=== PATIENT | female | born 1990 | race Caucasian/White ===

== ENCOUNTER 2016-05-31 10:23 | Emergency (ER) | payer SELFPAY ==
[~2016-05-31] VITALS: Ht 180.3 cm; Wt 64.3 kg
[~2016-05-31 10:23] MED LIST: AUGM500T7 PO; Benzocaine TOP; METH10TA PO
[2016-05-31 10:29] VITALS: BP 111/83; PULSE 73; RESP 16; TEMP 98.5; O2SAT 98
[2016-05-31] MEDS ORDERED: METH40TA PO (10:34)
[2016-05-31] MEDS ORDERED: PENI250T59 PO (10:38)
[2016-05-31] MEDS ORDERED: IBUP-232 PO (10:38)
--- NOTE | 2016-05-31 10:39 | PD ---
HPI Chief Complaint: Oral / Dental Pain or Problem Time Seen by Provider: 10:33 Travel History International Travel<30 days: No Contact w/Intl Traveler<30days: No Traveled to known affect area: No History of Present Illness HPI The patient is a 26-year-old female who presents to the emergency department for dental pain. The patient notes a five-day history of the left upper molar. The tooth is sensitive to heat and cold. The pain radiates up to the ear down into the neck. The pain is worse with mastication and palpation. The patient states she is unable to see a dentist for 2 weeks' duration. The patient is currently on methadone, denies any other medications. She denies any known drug allergies. The patient's last menstrual cycle was 2 weeks ago, she denies . She denies any associated swelling, fever, chills, or sweats. PFSH Past Medical History Cancer: No Cardiovascular Problems: No Diabetes: No Endocrine: No Genitourinary: No Hepatitis: No Hiatal Hernia: No Immune Disorder: No Musculoskeletal: No Neurologic: No Psychiatric: No Respiratory: No Thyroid Disease: No ?: Not LMP: 2 weeks ago Past Surgical History Pacemaker: No Social History Alcohol Use: No Tobacco Use: Yes (1.2 ood) Substance Use: No (HX OF IV ABUSE) Allergies-Medications (Allergen,Severity, Reaction): Coded Allergies: No Known Allergies (Unverified , 05/31/16) Reported Meds & Prescriptions Reported Meds & Active Scripts Active Reported Methadone (Methadone HCl) 40 Mg Tab 150 Mg PO DAILY Review of Systems General / Constitutional: No: Fever HENT: Positive: Dental Difficulties Skin: No Rash Neurologic: No: Paresthesia Physical Exam Narrative GENERAL: Awake, alert, nontoxic-appearing 26-year-old female who appears her stated age and is in no acute respiratory distress. SKIN: Warm and dry. HEAD: Atraumatic. Normocephalic. EYES: Pupils equal and round. No scleral icterus. No injection or drainage. ENT: No nasal bleeding or discharge. Mucous membranes pink and moist. Inspection of the dentition reveals that tooth #14 is slightly green discolored. It is sensitive to palpation. No obvious swelling along the gingival area. NECK: Trachea midline. No JVD. MUSCULOSKELETAL: No obvious deformities. No clubbing. No cyanosis. No edema. NEUROLOGICAL: Awake and alert. No obvious cranial nerve deficits. Motor grossly within normal limits. Normal speech. PSYCHIATRIC: Appropriate mood and affect; insight and judgment normal. Data Data Last Documented VS Vital Signs Date Time Temp Pulse Resp B/P Pulse Ox O2 Delivery O2 Flow Rate FiO2 05/31/16 10:29 98.5 73 16 111/83 98 MDM Medical Decision Making Medical Screen Exam Complete: Yes Emergency Medical Condition: Yes Medical Record Reviewed: Yes Differential Diagnosis Differential diagnosis includes odontalgia, gingivitis, dental abscess, avulsed tooth, cavity. Narrative Course The patient will be placed on Pen-Vee K. The patient is artery currently on methadone. I will add ibuprofen to the patient's pain regimen. She is advised to follow-up with a dentist. Diet as tolerated. Diagnosis Primary Impression: Odontalgia Patient Instructions: General Instructions Additional Instructions: Pen-Vee K and ibuprofen as directed. Follow-up with a dentist. Diet as tolerated. Med/Other Pt SpecificInfo: Prescription(s) given Scripts Ibuprofen 600 Mg Dpd305 Mg PO Q6H PRN (Pain/Inflammation) #40 TAB Ref 0 Prov:Bayron Last MD 05/31/16 Penicillin V Potassium (Penicillin Vk)250 Mg Swx286 Mg PO Q6H 10 Days Ref 0 Prov:aByron Last MD 05/31/16 Bayron Last MD May 31, 2016 10:39
== END 2016-05-31 10:52 | disposition home or self-care (01) ==
LOC: PHEFT 10:23
DX: K08.89 Other specified disorders of teeth and supporting structures (principal)
CPT/HCPCS: 99282